=== PATIENT | female | born 1960 | race Caucasian/White ===

== ENCOUNTER 2016-08-25 08:34 | Emergency (ER) | payer MEDICARE ==
[2016-08-25 07:21] LABS: INR 0.9 INR (0.9-1.1); PROTHROMBIN TIME 10.5 SECONDS (9.0-13.6)
[2016-08-25 07:23] LABS: BASO % 0.2 % (0-2); EOS % 2.4 % (0-7); EOSINOPHIL ABSOLUTE COUNT 0.3 tho/cmm (0.0-0.7); HCT-HEMATOCRIT 45.7 % (34.0-49.0); HGB-HEMOGLOBIN 15.8 gm/dl (12.0-15.5); IMMATURE GRANULOCYTES ABSOLUTE 0.02 tho/cmm (0-0.03); IMMATURE GRANULOCYTES PERCENT 0.2 % (0-0.3); LYMPH % 27.7 % (20-45); LYMPH ABSOLUTE COUNT 2.9 tho/cmm (0.8-4.5); MCH (MEAN CORPUSCULAR HGB) 33.5 pg (28.0-32.0); MCHC MEAN CORPUSCULAR HGB CONC 34.6 % (32.0-36.0); MCV (MEAN CELL VOLUME) 96.8 fl (82.0-96.0); MEAN PLATELET VOLUME 10.2 cmc (9.4-12.4); MONO % 8.1 % (0-12); MONOCYTE ABSOLUTE COUNT 0.9 tho/cmm (0.0-1.2); NEUTROPHIL ABSOLUTE COUNT 6.5 tho/cmm (1.6-8.0); NEUTROPHIL-AUTOMATED 6.5 tho/cmm (1.6-8.0); NEUTROPHILS % 61.4 % (40-80); PLATELET COUNT 292 tho/cmm (150-450); RED BLOOD COUNT 4.72 mil/cmm (4.00-5.20); RED CELL DISTRIBUTION WIDTH 12.6 % (12.4-16.4); WHITE BLOOD COUNT 10.5 tho/cmm (4.0-10.0)
[2016-08-25 07:34] LABS: ALB/GLOB RATIO 0.9 (0.8-2.0); ALBUMIN 3.6 g/dl (3.5-5.0); ALKALINE PHOSPHATASE 88 U/L (33-138); ALT/SGPT 21 U/L (12-78); BILIRUBIN,TOTAL 0.4 mg/dl (0-1.5); BLOOD UREA NITROGEN 8 mg/dl (6-24); C-REACTIVE PROTEIN 0.9 mg/dl (0-0.9); CARBON DIOXIDE-VENOUS 27 mmol/L (22-32); CHLORIDE 108 mmol/l (96-110); CREATININE 0.84 mg/dl (0.50-1.10); GLUCOSE 92 mg/dL (70-110); LIPASE 300 U/L (73-393); SODIUM 141 mmol/L (135-145); eGFR VALUE FOR BLACK >90 mL/Min
[2016-08-25 07:50] LABS: ANION GAP 10 mmol/L (0-20); AST/SGOT 23 U/L (10-40); POTASSIUM 3.8 mmol/L (3.7-5.1)
[2016-08-25 08:00] LABS: URINE BILIRUBIN NEGATIVE (NEG); URINE BLOOD SMALL (NEG); URINE GLUCOSE (UA) NEGATIVE (NEG); URINE KETONE NEGATIVE (NEG); URINE LEUKOCYTE ESTERASE POSITIVE (NEG); URINE NITRITE NEGATIVE (NEG); URINE PROTEIN NEGATIVE (NEG)
[2016-08-25 08:04] LABS: URINE APPEARANCE CLEAR; URINE COLOR PALE YELLOW
[2016-08-25 08:09] LABS: URINE BACTERIA 1+; URINE EPITHELIAL CELLS 0-2 /[HPF] (0-10); URINE RBC 0-3 /[HPF] (0-5)
[~2016-08-25 08:34] MED LIST: ALBUTEROL SULF8.5 GM IH; ALLEGRA-D1 TAB.SR PO; AMOX TR-K CLV 81 TAB PO; AMOXICILLIN875 M1 PO; ANTIBIOTIC; ASPIR 8181 MG PO; ASPIRIN81 MG; AUGMENTIN875 MG PO; BACTRIM DS TAB1 EAC2 PO; BACTRIM DS TABL1 TAB PO; BACTRIM DS1 TA1 PO; BAYER81 MG PO; BENTYL20 MG PO; CELLCEPT500 M1 PO; CILOSTAZOL50 MG; CIPRO750 M1 PO; CIPRO750 MG PO; CIPRODEX OTIC7.5 M1 OT; CITRATE OF MAG296 ML PO; COLACE; COLACE100 M1 PO; COLACE100 MG; COLACE100 MG PO; COLACE50 MG; COLACE50 MG PO; CONSTULOSE10 G/15 ML PO; DIFLUCAN100 M1 PO; DILAUDID PO; DILAUDID2 MG; DIPENTUM250 MG PO; DULCOLAX PO; DULCOLAX STOOL100 MG PO; DULCOLAX5 MG PO; ELAVIL50 MG; ENDOCET 7.5-321 EACH PO; ENULOSE10 G/15 ML; FAMVIR500 MG PO; FLAGYL500 MG PO; FLEXERIL10 MG PO; FLEXERIL5 M1 PO; FLEXERIL5 MG PO; FLONASE ALLERG9.9 ML; FLUTICASONE PRO16 G1; FOLGARD TABLET1 EACH PO; FOLGARD TABLET1 TAB PO; GABAPENTIN600 M1 PO; GABAPENTIN600 M2 PO; GABAPENTIN600 MG PO; GRALISE600 M1 PO; GRALISE600 MG PO; HYDROCODON-ACE1 EA16 PO; HYDROCODON-ACE1 EAC7 PO; HYDROCODONE/APA1 CAP PO; HYDROMORPHONE HC2 MG PO; IBUPROFEN IB200 M1 PO; IMITREX4 MG/0.5 M SQ; IMURAN50 MG PO; LACTULOSE; LEVOTHYROXINE125 MCG PO; LEVOXYL150 MCG PO; LEVOXYL175 MC1 PO; LEXAPRO10 MG PO; LIDOCAINE 5% TOP; LIDODERM30 EA TOP; LIDODERM700 MG TP; LINZESS PO; LINZESS290 MC1 PO; LORTAB 5/500 TA1 TAB PO; MACROBID 100 M100 M1 PO; MAGNESIUM200 MG PO; MEDROL4 MG/DOSE- PO; METANX TABLET1 EACH PO; METHADONE5 MG PO; MILK OF MAGNES311 MG PO; MIRALAX17 G1 PO; MIRALAX17 G2 PO; MIRALAX17 GM PO; MIRALAX255 GM; MIRALAX255 GM PO; MONISTAT-DERM15 GM TP; MOTRIN600 MG PO; MUCINEX DM1 TAB.SR . PO; NASONEX17 G1; NEURONTIN600 M1 PO; NORCO 10/325 TA1 TAB PO; NORCO 5-325 TA1 EACH PO; NORCO 5/325 TAB1 TAB PO; NORTRIPTYLIHNE25 MG; NORTRIPTYLINE H10 MG; NORTRIPTYLINE H25 MG; NORTRIPTYLINE H50 MG; NORVASC10 M1 PO; NORVASC5 MG; NORVASC5 MG PO; NUCYNTA50 MG PO; NYSTATIN100000 UNI PO; NYSTATIN60 ML PO; OMEPRAZOLE20 M3 PO; OMNICEF300 MG PO; OXYCODONE/APAP PO; PAMELOR75 MG PO; PERCOCET 5-3251 EACH PO; PERCOCET 5/3251 TAB; PERCOCET 5/3251 TAB PO; PERCOCET 7.5-31 EAC1 PO; PHENERGAN; PHENERGAN W/CO120 M1 PO; PHENERGAN25 M1 PO; PHENERGAN25 M2 PO; PHENERGAN25 M2 RC; PHENERGAN25 M3 RC; PHENERGAN25 M4 RC; PHENERGAN25 MG PO; PHENERGAN25 MG/SUP1 PR; PHENERGAN25 MG/SUPP PR; PHENERGAN25 MG/SUPP RC; PHENERGAN50 M2 RC; PLAQUENIL200 M1 PO; PLAQUENIL200 MG PO; PREDNISONE; PREDNISONE10 M1 PO; PREDNISONE10 MG PO; PREDNISONE20 MG PO; PREDNISONE5 M1 PO; PREDNISONE50 MG PO; PREVACID15 MG; PRILOSEC; PRILOSEC OTC20 MG; PRILOSEC20 MG; PRILOSEC20 MG PO; PROAIR HFA8.5 GM INH; PROMETHAZINE HC25 M3 PO; PROMETHAZINE HC50 M2 PO; PROMETHAZINE12.5 M2 PO; PROMETHAZINE25 MG PO; PROTONIX40 M2 PO; PROTONIX40 MG PO; REGLAN10 MG; RESTORIL15 MG; SENNA8.6 MG; SYNTHROID100 MC1 PO; SYNTHROID125 MCG; SYNTHROID150 MC1 PO; SYNTHROID150 MCG; SYNTHROID150 MCG PO; SYNTHROID175 MC1 PO; SYNTHROID50 MCG; TETRACYCLINE; THEREMS-M1 TA PO; TYLENOL325 M1 PO; TYLENOL325 MG PO; TYLENOL500 MG PO; TYLENOL650 MG PO; ULTRAM50 MG PO; UNK MED SL; VICODIN 5/500 T1 TAB; VICODIN 5/500 T1 TAB PO; VIMPAT50 MG/TAB GT; VITAMIN A10000 IU PO; VITAMIN D; VITAMIN D250000 UNI1 PO; XANAX0.5 M1 PO; XANAX0.5 MG; XANAX0.5 MG PO; XANAX2 MG; ZANTAC300 MG PO; ZOFRAN ODT4 MG PO; ZOFRAN ODT4 MG/UDTAB PO; [UNRECOGNIZED DRUG - CODE] TOP; [UNRECOGNIZED DRUG - OTHER]; [UNRECOGNIZED DRUG - OTHER]; [UNRECOGNIZED DRUG - OTHER]; [UNRECOGNIZED DRUG - OTHER] PO; [UNRECOGNIZED DRUG - REMARK]; colace PO
[2016-11-04] MEDS ORDERED: FLONASE ALLERG9.9 ML (14:15)
[2016-12-23] MEDS ORDERED: CEFDINIR300 M1 PO (15:05)
[2016-12-23] MEDS ORDERED: DIFLUCAN150 M1 PO (15:07)
[2016-12-23] MEDS ORDERED: NORCO 5-325 TA1 EACH PO (15:13)
[2016-12-23] MEDS ORDERED: PROMETHAZINE HC25 M3 PO (15:16)
== END 2016-08-25 09:34 ==
LOC: EDMED 08:34
PROVIDERS: Emergency Medicine
DX: R10.9 Unspecified abdominal pain (principal); G89.29 Other chronic pain; K62.5 Hemorrhage of anus and rectum; Z90.710 Acquired absence of both cervix and uterus; Z90.89 Acquired absence of other organs; Z90.49 Acquired absence of other specified parts of digestive tract; F17.200 Nicotine dependence, unspecified, uncomplicated
CPT/HCPCS: J1170; J2405; J7030

== ENCOUNTER 2016-09-30 21:14 | Emergency (ER) | payer MEDICARE ==
[2016-09-30] MEDS ORDERED: CYMBALTA30 M1 PO (22:04)
[2016-11-04] MEDS ORDERED: FLONASE ALLERG9.9 ML (14:15)
[2016-12-23] MEDS ORDERED: CEFDINIR300 M1 PO (15:05)
[2016-12-23] MEDS ORDERED: DIFLUCAN150 M1 PO (15:07)
[2016-12-23] MEDS ORDERED: NORCO 5-325 TA1 EACH PO (15:13)
[2016-12-23] MEDS ORDERED: PROMETHAZINE HC25 M3 PO (15:16)
== END 2016-09-30 23:20 ==
LOC: EDMED 21:14
DX: G44.209 Tension-type headache, unspecified, not intractable (principal); J70.5 Respiratory conditions due to smoke inhalation; E03.9 Hypothyroidism, unspecified; K21.9 Gastro-esophageal reflux disease without esophagitis; Z79.890 Hormone replacement therapy; Z79.899 Other long term (current) drug therapy
CPT/HCPCS: J1170

== ENCOUNTER 2016-10-10 11:29 | Emergency (ER) | payer MEDICARE ==
[~2016-10-10 11:29] MED LIST changes: +CYMBALTA30 M1 PO
[2016-10-10 12:49] LABS: BASO % 0.1 % (0-2); EOS % 0.5 % (0-7); HCT-HEMATOCRIT 44.7 % (34.0-49.0); HGB-HEMOGLOBIN 15.6 gm/dl (12.0-15.5); IMMATURE GRANULOCYTES ABSOLUTE 0.01 tho/cmm (0-0.03); IMMATURE GRANULOCYTES PERCENT 0.1 % (0-0.3); LYMPH % 11.4 % (20-45); MCHC MEAN CORPUSCULAR HGB CONC 34.9 % (32.0-36.0); MCV (MEAN CELL VOLUME) 94.5 fl (82.0-96.0); MEAN PLATELET VOLUME 9.6 cmc (9.4-12.4); MONO % 1.9 % (0-12); MONOCYTE ABSOLUTE COUNT 0.2 tho/cmm (0.0-1.2); NEUTROPHIL ABSOLUTE COUNT 7.6 tho/cmm (1.6-8.0); NEUTROPHIL-AUTOMATED 7.6 tho/cmm (1.6-8.0); PLATELET COUNT 291 tho/cmm (150-450); RED BLOOD COUNT 4.73 mil/cmm (4.00-5.20); RED CELL DISTRIBUTION WIDTH 12.4 % (12.4-16.4); WHITE BLOOD COUNT 8.8 tho/cmm (4.0-10.0)
[2016-10-10 13:13] LABS: ALB/GLOB RATIO 0.9 (0.8-2.0); ALBUMIN 3.6 g/dl (3.5-5.0); ALKALINE PHOSPHATASE 89 U/L (33-138); ALT/SGPT 21 U/L (12-78); BILIRUBIN,TOTAL 0.3 mg/dl (0-1.5); BLOOD UREA NITROGEN 8 mg/dl (6-24); C-REACTIVE PROTEIN 0.7 mg/dl (0-0.9); CALCIUM 8.8 mg/dl (8.5-10.5); CARBON DIOXIDE-VENOUS 26 mmol/L (22-32); CHLORIDE 110 mmol/l (96-110); CREATININE 0.85 mg/dl (0.50-1.10); GLUCOSE 102 mg/dL (70-110); LIPASE 254 U/L (73-393); SODIUM 145 mmol/L (135-145); eGFR VALUE FOR BLACK 89 mL/Min
[2016-10-10 13:22] LABS: ANION GAP 13 mmol/L (0-20); AST/SGOT 27 U/L (10-40); POTASSIUM 4.1 mmol/L (3.7-5.1)
[2016-10-10 13:23] LABS: URINE APPEARANCE CLEAR; URINE BILIRUBIN NEGATIVE (NEG); URINE BLOOD NEGATIVE (NEG); URINE COLOR PALE YELLOW; URINE GLUCOSE (UA) NEGATIVE (NEG); URINE KETONE NEGATIVE (NEG); URINE LEUKOCYTE ESTERASE NEGATIVE (NEG); URINE NITRITE NEGATIVE (NEG); URINE PH 6.5 (5.0-8.0); URINE PROTEIN NEGATIVE (NEG); URINE SPECIFIC GRAVITY 1.005 (1.003-1.030)
[2016-10-10] MEDS ORDERED: PREDNISONE5 M1 PO (13:46)
[2016-10-10] MEDS ORDERED: PROMETHAZINE HC25 M3 PO (14:59)
[2016-11-04] MEDS ORDERED: FLONASE ALLERG9.9 ML (14:15)
[2016-12-23] MEDS ORDERED: CEFDINIR300 M1 PO (15:05)
[2016-12-23] MEDS ORDERED: DIFLUCAN150 M1 PO (15:07)
[2016-12-23] MEDS ORDERED: NORCO 5-325 TA1 EACH PO (15:13)
[2016-12-23] MEDS ORDERED: PROMETHAZINE HC25 M3 PO (15:16)
== END 2016-10-10 15:02 ==
LOC: EDMED 11:29
PROVIDERS: Emergency Medicine
DX: R10.9 Unspecified abdominal pain (principal); G89.29 Other chronic pain; Z90.49 Acquired absence of other specified parts of digestive tract; Z90.89 Acquired absence of other organs; Z90.710 Acquired absence of both cervix and uterus; F17.200 Nicotine dependence, unspecified, uncomplicated; Z91.041 Radiographic dye allergy status
CPT/HCPCS: J1170; J2060; J2405; J7030

== ENCOUNTER 2016-11-06 05:31 | Day surgery (SDC) | payer MEDICARE ==
[2016-12-23] MEDS ORDERED: CEFDINIR300 M1 PO (15:05)
[2016-12-23] MEDS ORDERED: DIFLUCAN150 M1 PO (15:07)
[2016-12-23] MEDS ORDERED: NORCO 5-325 TA1 EACH PO (15:13)
[2016-12-23] MEDS ORDERED: PROMETHAZINE HC25 M3 PO (15:16)
== END 2016-11-06 11:34 ==
LOC: SRG 05:31 → SHSB 05:43 → ORE 07:26 → PACU 08:18 → SHSB 09:05
PROC: 097G7ZZ Dilation of Left Eustachian Tube, Via Natural or Artificial Opening (ICD-10-PCS; principal; 2016-11-06)
PROC: 097F7ZZ Dilation of Right Eustachian Tube, Via Natural or Artificial Opening (ICD-10-PCS; 2016-11-06)
DX: H69.83 Other specified disorders of Eustachian tube, bilateral (principal); H65.21 Chronic serous otitis media, right ear; E78.5 Hyperlipidemia, unspecified; G43.909 Migraine, unspecified, not intractable, without status migrainosus; E89.0 Postprocedural hypothyroidism; F41.9 Anxiety disorder, unspecified; K21.9 Gastro-esophageal reflux disease without esophagitis; F17.210 Nicotine dependence, cigarettes, uncomplicated; I73.00 Raynaud's syndrome without gangrene; M35.00 Sjogren syndrome, unspecified; G62.9 Polyneuropathy, unspecified; Z79.51 Long term (current) use of inhaled steroids; Z79.899 Other long term (current) drug therapy; Z88.1 Allergy status to other antibiotic agents; Z88.8 Allergy status to other drugs, medicaments and biological substances; Z91.013 Allergy to seafood; Z91.041 Radiographic dye allergy status; Z91.048 Other nonmedicinal substance allergy status; Z90.710 Acquired absence of both cervix and uterus; Z90.49 Acquired absence of other specified parts of digestive tract; Z90.89 Acquired absence of other organs; Z98.890 Other specified postprocedural states
CPT/HCPCS: C1726; J1200; J2405

== ENCOUNTER 2016-11-18 10:34 | Emergency (ER) | payer MEDICARE ==
[2016-11-18] MEDS ORDERED: ANTIBIOTIC (11:29)
[2016-11-18 12:17] LABS: BASO % 0.1 % (0-2); EOS % 1.9 % (0-7); EOSINOPHIL ABSOLUTE COUNT 0.2 tho/cmm (0.0-0.7); HCT-HEMATOCRIT 43.1 % (34.0-49.0); IMMATURE GRANULOCYTES ABSOLUTE 0.03 tho/cmm (0-0.03); IMMATURE GRANULOCYTES PERCENT 0.3 % (0-0.3); LYMPH % 27.8 % (20-45); LYMPH ABSOLUTE COUNT 2.8 tho/cmm (0.8-4.5); MCH (MEAN CORPUSCULAR HGB) 32.6 pg (28.0-32.0); MCHC MEAN CORPUSCULAR HGB CONC 34.8 % (32.0-36.0); MCV (MEAN CELL VOLUME) 93.7 fl (82.0-96.0); MEAN PLATELET VOLUME 9.5 cmc (9.4-12.4); MONO % 6.8 % (0-12); MONOCYTE ABSOLUTE COUNT 0.7 tho/cmm (0.0-1.2); NEUTROPHIL ABSOLUTE COUNT 6.4 tho/cmm (1.6-8.0); NEUTROPHIL-AUTOMATED 6.4 tho/cmm (1.6-8.0); NEUTROPHILS % 63.1 % (40-80); PLATELET COUNT 292 tho/cmm (150-450); RED CELL DISTRIBUTION WIDTH 12.4 % (12.4-16.4); WHITE BLOOD COUNT 10.1 tho/cmm (4.0-10.0)
[2016-11-18 12:25] LABS: ANION GAP 12 mmol/L (0-20); BLOOD UREA NITROGEN 9 mg/dl (6-24); CALCIUM 8.5 mg/dl (8.5-10.5); CARBON DIOXIDE-VENOUS 27 mmol/L (22-32); CHLORIDE 104 mmol/l (96-110); CREATININE 0.73 mg/dl (0.50-1.10); GLUCOSE 85 mg/dL (70-110); LIPASE 208 U/L (73-393); SODIUM 139 mmol/L (135-145); eGFR VALUE FOR BLACK >90 mL/Min
[2016-11-18 12:29] LABS: POTASSIUM 4.2 mmol/L (3.7-5.1)
[2016-12-23] MEDS ORDERED: CEFDINIR300 M1 PO (15:05)
[2016-12-23] MEDS ORDERED: DIFLUCAN150 M1 PO (15:07)
[2016-12-23] MEDS ORDERED: NORCO 5-325 TA1 EACH PO (15:13)
[2016-12-23] MEDS ORDERED: PROMETHAZINE HC25 M3 PO (15:16)
== END 2016-11-18 13:50 ==
LOC: EDMED 10:34
PROVIDERS: Nurse Practitioner Family
DX: R10.31 Right lower quadrant pain (principal); G89.29 Other chronic pain; Z98.890 Other specified postprocedural states; Z90.710 Acquired absence of both cervix and uterus; Z87.19 Personal history of other diseases of the digestive system; F17.210 Nicotine dependence, cigarettes, uncomplicated
CPT/HCPCS: J1170; J2060; J2405; J7030